=== PATIENT | female | born 1995 | race Two or more races ===

== ENCOUNTER 2023-06-05 18:57 | Emergency (ER) | payer OTHER ==
[~2023-06-05] VITALS: Ht 149.9 cm; Wt 67.6 kg
[2023-06-05 21:56] LABS: HEMATOCRIT 40.8 % (36.0-45.00); MEAN CELL VOLUME 86.6 fL (80.00-100.00); MEAN CORPUSCULAR HEMOGLOBIN 29.7 pg (27.00-32.0); MEAN CORPUSCULAR HGB CONC 34.3 g/dl (32.0-36.0); PLATELET COUNT 283 K/uL (150-450); RED BLOOD COUNT 4.71 M/uL (4.00-6.00); RED CELL DISTRIBUTION WIDTH 13.3 % (11.5-14.5)
[2023-06-05 22:06] LABS: PH,URINE 6.5 (5.0-8.0); URINE APPEARANCE Clear; URINE BILIRRUBIN Negative (NEGATIVE); URINE BLOOD Negative; URINE COLOR Yellow; URINE GLUCOSE Negative (NEGATIVE); URINE LEUKOCYTE Negative; URINE NITRATE Negative; URINE PROTEIN Negative (NEGATIVE); URINE UROBILINOGEN 0.2 E.U./dl
[2023-06-05 22:10] LABS: URINE BACTERIA 539.1 uL (0.0-1933); URINE EPITHELIAL CELLS 3.7 uL (0.0-38.8); URINE RBC 6.8 uL (0.0-20.8); URINE WBC 6.3 uL (0.0-23.2)
[2023-06-05 22:19] LABS: INR 0.98; PROTHROMBIN TIME 10.3 SECONDS (9.0-11.5)
[2023-06-05 22:34] LABS: CALCIUM 9.3 mg/dL (8.5-10.1); CREATININE SERUM 0.62 mg/dL (0.55-1.02); GFR 116.35; POTASSIUM 4.14 mEq/L (3.5-5.1)
[2023-06-05 22:38] LABS: PARTIAL THROMBOPLASTIN TIME < 20.0 SECONDS (22.0-34.0)
[2023-06-06] MEDS ORDERED: 3-DAY VAGINAL C21 GM VAG
== END 2023-06-06 00:20 | disposition home or self-care (01) ==
LOC: ER 18:57
PROVIDERS: General Practice
DX: O20.9 Hemorrhage in early pregnancy, unspecified (principal); O23.591 Infection of other part of genital tract in pregnancy, first trimester; Z3A.08 8 weeks gestation of pregnancy

== ENCOUNTER 2023-08-02 12:40 | Inpatient (IN) | payer OTHER ==
[~2023-08-02] VITALS: Ht 149.9 cm; Wt 71.2 kg
[~2023-08-02 12:40] MED LIST: 3-DAY VAGINAL C21 GM VAG
[2023-08-02] MEDS ORDERED: PRENATAL CAPLE1 EAC1 PO (13:03)
[2023-08-02] MEDS ORDERED: RINGERS SOLUTION,LACTATED 1,000 ML IV SCH (13:45)
[2023-08-02] MEDS ORDERED: CEFAZOLIN SODIUM 1,000 MG VIAL ONE (14:48)
[2023-08-02] MEDS ORDERED: CEFAZOLIN SODIUM 1,000 MG VIAL IV STA (14:49)
[2023-08-02 15:17] LABS: URINE APPEARANCE Cloudy; URINE BILIRRUBIN Negative (NEGATIVE); URINE BLOOD Negative; URINE COLOR Yellow; URINE GLUCOSE Negative (NEGATIVE); URINE LEUKOCYTE Negative; URINE NITRATE Negative; URINE PROTEIN Trace (NEGATIVE); URINE UROBILINOGEN 0.2 E.U./dl
[2023-08-02 15:20] LABS: HEMATOCRIT 36.8 % (36.0-45.00); HEMOGLOBIN 12.7 g/dL (12.0-15.00); MEAN CORPUSCULAR HEMOGLOBIN 29.7 pg (27.00-32.0); MEAN CORPUSCULAR HGB CONC 34.5 g/dl (32.0-36.0); PLATELET COUNT 274 K/uL (150-450); RED BLOOD COUNT 4.28 M/uL (4.00-6.00); RED CELL DISTRIBUTION WIDTH 13.4 % (11.5-14.5)
[2023-08-02 15:22] LABS: URINE BACTERIA 966.3 uL (0.0-1933); URINE EPITHELIAL CELLS 43.5 uL (0.0-38.8); URINE RBC 17.9 uL (0.0-20.8); URINE WBC 14.3 uL (0.0-23.2)
[2023-08-02 15:35] LABS: INR 0.97; PARTIAL THROMBOPLASTIN TIME 25.2 SECONDS (22.0-34.0); PROTHROMBIN TIME 10.2 SECONDS (9.0-11.5)
[2023-08-02 15:43] LABS: ALBUMIN 3.4 gm/dL (3.4-5.0); BILIRUBIN TOTAL 0.19 mg/dL (0.3-1.2); CALCIUM 9.6 mg/dL (8.5-10.1); CREATININE SERUM 0.55 mg/dL (0.55-1.02); GFR 133.61; GLOBULINA 3.4 G/DL (2.4-3.5); POTASSIUM 4.32 mEq/L (3.5-5.1); TOTAL PROTEIN 6.8 gm/dL (6.4-8.2)
[2023-08-02 16:08] LABS: URINE CRYSTALS MODERATE /HPF
[2023-08-02] MEDS ORDERED: CEFAZOLIN SODIUM 1,000 MG VIAL IV SCH (20:00)
[2023-08-03] MEDS ORDERED: ACETAMINOPHEN 500 MG GEL..CAP PO ONE ×2 (08:23→08:30)
[2023-08-06] MEDS ORDERED: MISOPROSTOL 100 MCG TABLET ONE ×2 (07:45→07:50)
[2023-08-06] MEDS ORDERED: MISOPROSTOL 100 MCG TABLET PO STA (07:54)
[2023-08-06] MEDS ORDERED: MISOPROSTOL 100 MCG TABLET VAG STA (07:55)
[2023-08-06 08:37] LABS: HEMATOCRIT 34.8 % (36.0-45.00); HEMOGLOBIN 12.2 g/dL (12.0-15.00); MEAN CELL VOLUME 87.4 fL (80.00-100.00); MEAN CORPUSCULAR HEMOGLOBIN 30.5 pg (27.00-32.0); MEAN CORPUSCULAR HGB CONC 34.9 g/dl (32.0-36.0); PLATELET COUNT 245 K/uL (150-450); RED BLOOD COUNT 3.99 M/uL (4.00-6.00)
[2023-08-06] MEDS ORDERED: MEPERIDINE HCL/PF 50 MG/ML VIAL IV ONE (10:15)
[2023-08-06] MEDS ORDERED: PROMETHAZINE HCL 25 MG/ML AMPUL IV ONE (10:15)
[2023-08-06] MEDS ORDERED: ACETAMINOPHEN 500 MG GEL..CAP PO PRN (10:15)
[2023-08-06] MEDS ORDERED: CHLORHEXIDINE GLUCONATE 120 ML BOTTLE TOP ONE ×2 (10:58→12:45)
[2023-08-06] MEDS ORDERED: OXYTOCIN 10 UNITS/ML VIAL ONE (12:22)
[2023-08-06] MEDS ORDERED: OxyCODONE HCL/APAP UD (PERCOCET) PO PRN (12:45)
[2023-08-06] MEDS ORDERED: OXYTOCIN IV ONE (12:45)
[2023-08-06] MEDS ORDERED: ACETAMINOPHEN 325 MG TABLET PO PRN (12:45)
[2023-08-06] MEDS ORDERED: LACTATED RINGERS IV ONE (12:45)
[2023-08-06] MEDS ORDERED: OXYTOCIN 1,000 ML IV SCH (13:00)
[2023-08-06] MEDS ORDERED: OXYTOCIN 10 UNITS/ML VIAL IV ONE (13:00)
[2023-08-06] MEDS ORDERED: HYDROCORTISONE 2.5% 30 GM TUBE RECTAL SCH ×2 (13:00→17:00)
== END 2023-08-07 08:49 | disposition home or self-care (01) | DRG 806 ==
LOC: OBS/DEL 12:40 → LDR 14:46
PROVIDERS: ADMIT Specialist; ATTEND Specialist
PROC: 10E0XZZ Delivery of Products of Conception, External Approach (ICD-10-PCS; principal; 2023-08-02)
PROC: 3E033VJ Introduction of Other Hormone into Peripheral Vein, Percutaneous Approach (ICD-10-PCS; 2023-08-02)
PROC: 3E0P7VZ Introduction of Hormone into Female Reproductive, Via Natural or Artificial Opening (ICD-10-PCS; 2023-08-02)
PROC: 3E0DXGC Introduction of Other Therapeutic Substance into Mouth and Pharynx, External Approach (ICD-10-PCS; 2023-08-02)
PROC: 4A1HXCZ Monitoring of Products of Conception, Cardiac Rate, External Approach (ICD-10-PCS; 2023-08-02)
PROC: BY49ZZZ Ultrasonography of First Trimester, Single Fetus (ICD-10-PCS; 2023-08-02)
PROC: BU4CZZZ Ultrasonography of Uterus and Ovaries (ICD-10-PCS; 2023-08-02)
DX: O60.12X0 Preterm labor second trimester with preterm delivery second trimester, not applicable or unspecified (principal); O41.02X0 Oligohydramnios, second trimester, not applicable or unspecified; O42.012 Preterm premature rupture of membranes, onset of labor within 24 hours of rupture, second trimester; O03.4 Incomplete spontaneous abortion without complication; O26.842 Uterine size-date discrepancy, second trimester; Z37.1 Single stillbirth; Z3A.16 16 weeks gestation of pregnancy